=== PATIENT | female | born 1955 | race Caucasian/White ===

== ENCOUNTER → 2016-09-16 | Day surgery (SDC) | payer BC ==
[~2016-09-16] MED LIST: ASCORBIC ACID 250 MG TAB PO SCH; ASPIRIN 81 MG CHEWABLE TAB PO SCH; ATROPINE SULFATE 1 MG/10 ML SYR IVP PRN; CALCIUM CARBONATE 500 MG TAB PO SCH; CYANO/VITAMIN B12 1000 MCG TAB PO SCH; HYDROCODONE/APAP 5/325 TAB PO PRN; IOPAMIDOL (ISOVUE-370) 150 ML BTL IV ONE; LIDOCAINE 1% 30 ML SDV ONE; LORazepam 1 MG TAB PO PRN; MAGNESIUM OXIDE 400 MG TAB PO SCH; MIDAZOLAM 2 MG/2 ML VIAL ONE; NITROGLYCERIN 0.4 MG BTL SL PRN; NON-FORMULARY NEW DRUG (Esomeprazole Mag Trihydrate [Nexium] 40 MG) PO SCH; ONDANSETRON 4 MG/2 ML VIAL IVP PRN; OXYCODONE/APAP 5/325 TAB PO PRN; PANTOPRAZOLE SODIUM 40 MG TAB PO SCH; PROPAFENONE HCL SR 225 MG CAP PO SCH; PYRIDOXINE HCL 100 MG TAB PO SCH; fentaNYL 100 MCG/2 ML INJ ONE
[2016-09-16 13:14] VITALS: RESP 16; TEMP 99.3
--- NOTE | 2016-09-16 13:39 | CPEKG ---
Heart Rate: 65 RR Interval: 923 P-R Interval: 136 QRSD Interval: 84 QT Interval: 400 QTC Interval: 416 P Whitefield: 67 QRS Whitefield: 27 T Wave Whitefield: 17 EKG Severity - NORMAL ECG - EKG Impression: SINUS RHYTHM Electronically Signed By: Doug Carrasco 16-Sep-2016 15:31:56
--- NOTE | 2016-09-16 14:05 | EDPHY ---
H & P Time Seen by Provider: 09/16/16 13:32 HPI/ROS: Chief complaint. Dizziness HPI. 61-year-old female with increasing dizziness over the past 2 weeks. She was dizzy today and this somewhat continues. She had some shortness of breath. Occasional chest pressure. She had an abnormal stress test 2 days ago with the indication was arrhythmia. The abnormality is not known to the patient and there is no record in our system. She was dizzy and called the jigger operator's office today and was told to come to the ED ROS Constitutional. no fever/chills, no weakness Eyes. no problems with vision ENT. no sore throat, no nasal drainage Cardiovascular. Chest pressure Respiratory. Short of breath Abdominal. no abdominal pain, no nausea/vomiting, no diarrhea . no problems urinating MS. no calf pain/swelling, no neck/back pain, no joint pain Skin. no rash Lymph. no swollen glands Neuro. Dizziness Past Medical/Surgical History: Arrhythmia, back fusion Social History: , nonsmoker, no alcohol Smoking Status: Former smoker Physical Exam: General Appearance: Alert well-developed female mild distress vital signs stable Eyes: Pupils equal and round no pallor or injection. ENT, Mouth: Mucous membranes are moist. Respiratory: There are no retractions, lungs are clear to auscultation. Cardiovascular: Regular rate and rhythm. Gastrointestinal: Abdomen is soft and nontender, no masses, bowel sounds normal. Neurological: Awake and alert, sensory and motor exams grossly normal. Skin: Warm and dry, no rashes. Musculoskeletal: Neck is supple nontender. Extremities symmetrical, full range of motion. Psychiatric: Patient is oriented X 3, there is no agitation. Constitutional: Initial Vital Signs Temperature (C) 37.4 C 09/16/16 13:12 Heart Rate 70 09/16/16 13:12 Respiratory Rate 16 09/16/16 13:12 Blood Pressure 155/98 H 09/16/16 13:12 O2 Sat (%) 96 09/16/16 13:12 O2 Delivery Mode Room Air Allergies/Adverse Reactions: codeine Allergy (Mild, Verified 09/16/16 13:15) nauseated morphine Allergy (Mild, Verified 09/16/16 13:14) nauseated Home Medications: Medication Instructions Recorded Aspirin [Aspirin 81mg (*)] 81 mg PO DAILY 09/16/16 Esomeprazole Magnesium [Nexium] 5 mg PO 09/16/16 LORazepam [Ativan (*)] 1 mg PO 09/16/16 celeCOXIB [Celebrex (*)] 200 mg PO 09/16/16 Medical Decision Making - Diagnostics EKG Interpretation: EKG interpreted by me shows normal sinus rhythm normal interval and axis. QRS is normal there is no significant ST elevation or depression. No arrhythmia. The rate is 65 Procedures: IV normal saline, monitor ED Course/Re-evaluation: I called [facility] and have them send over results of her exercise stress test from 2 days ago. It shows that it was indeed abnormal and consistent with ischemia and cardiac catheterization is recommended Re-evaluation patient is stable. Patient and I discussed imaging lab EKG findings. We discussed treatment plan and recommendation for admission. I consulted and discussed case with Dr. Cox, cardiology, who will see the patient in the emergency department I called and discussed case with Dr. Abdalla, hospitalist, who agrees to the admission Differential Diagnosis: Patient has a normal workup today but has progressive dizziness and abnormal stress test consistent with ischemia. Plan is admission and heart catheterization - Data Points Laboratory Results: Laboratory Results 09/16/16 13:52 09/16/16 13:52 09/16/16 09/16/16 09/16/16 13:52 13:52 13:52 WBC 6.75 10^3/uL 10^3/uL (3.80-9.50) RBC 5.06 10^6/uL 10^6/uL (4.18-5.33) Hgb 14.9 g/dL g/dL (12.6-16.3) Hct 43.0 % % (38.0-47.0) MCV 85.0 fL fL (81.5-99.8) MCH 29.4 pg pg (27.9-34.1) MCHC 34.7 g/dL g/dL (32.4-36.7) RDW 13.2 % % (11.5-15.2) Plt Count 268 10^3/uL 10^3/uL (150-400) MPV 10.0 fL fL (8.7-11.7) Neut % (Auto) 70.1 % % (39.3-74.2) Lymph % (Auto) 21.5 % % (15.0-45.0) [place] % (Auto) 8.1 % % (4.5-13.0) Eos % (Auto) 0.0 % L % (0.6-7.6) Baso % (Auto) 0.0 % L % (0.3-1.7) Nucleat RBC Rel Count 0.0 % % (0.0-0.2) Absolute Neuts (auto) 4.73 10^3/uL 10^3/uL (1.70-6.50) Absolute Lymphs (auto) 1.45 10^3/uL 10^3/uL (1.00-3.00) Absolute Monos (auto) 0.55 10^3/uL 10^3/uL (0.30-0.80) Absolute Eos (auto) 0.00 10^3/uL L 10^3/uL (0.03-0.40) Absolute Basos (auto) 0.00 10^3/uL L 10^3/uL (0.02-0.10) Absolute Nucleated RBC 0.00 10^3/uL 10^3/uL (0-0.01) Immature Gran % 0.3 % % (0.0-1.1) Immature Gran # 0.02 10^3/uL 10^3/uL (0.00-0.10) D-Dimer 0.28 ug/mLFEU ug/mLFEU (0.00-0.50) Sodium 140 mEq/L mEq/L (134-144) Potassium 4.2 mEq/L mEq/L (3.5-5.2) Chloride 104 mEq/L mEq/L (97-110) Carbon Dioxide 26 mEq/l mEq/l (22-31) Anion Gap 10 mEq/L mEq/L (8-16) BUN 22 mg/dL mg/dL (7-23) Creatinine 0.6 mg/dL mg/dL (0.6-1.0) Estimated GFR > 60 Glucose 102 mg/dL H mg/dL (70-100) Calcium 9.8 mg/dL mg/dL (8.5-10.4) Troponin I < 0.012 ng/mL ng/mL (0-0.034) Departure - Departure Disposition: [facility] Clinical Impression: Dizziness, Abnormal ECG during exercise stress test Condition: Good Referrals: Grace Cazares MD [Primary Care Provider] - As per Instructions Aries Macdonald MD [Medical Doctor] - As per Instructions
[2016-09-16 14:07] LABS: % IMMATURE GRANULYOCYTES 0.3 % (0.0-1.1); ABSOLUTE IMMATURE GRANULOCYTES 0.02 10^3/uL (0.00-0.10); ADD DIFF? NO; ADD MORPH? NO; ADD SCAN? NO; ATYPICAL LYMPHOCYTE FLAG 0 (0-99); FRAGMENT RBC FLAG 0 (0-99); HEMOGLOBIN 14.9 g/dL (12.6-16.3); LEFT SHIFT FLG 0 (0-99); LIPEMIA HEMOLYSIS FLAG 90 (0-99); MEAN CELL HEMOGLOBIN 29.4 pg (27.9-34.1); MEAN CELL HEMOGLOBIN CONCENTR. 34.7 g/dL (32.4-36.7); PLATELET CLUMPS FLAG 20 (0-99); PLATELET COUNT 268 10^3/uL (150-400); RED BLOOD CELL COUNT 5.06 10^6/uL (4.18-5.33); RED CELL DISTRIBUTION WIDTH 13.2 % (11.5-15.2)
[2016-09-16 14:16] LABS: ANION GAP 10 mEq/L (8-16); CALCIUM 9.8 mg/dL (8.5-10.4); CARBON DIOXIDE 26 mEq/l (22-31); CHLORIDE 104 mEq/L (97-110); CREATININE 0.6 mg/dL (0.6-1.0); GLOMERULAR FILTRATION RATE > 60; GLUCOSE 102 mg/dL (70-100); POTASSIUM 4.2 mEq/L (3.5-5.2); SODIUM 140 mEq/L (134-144)
[2016-09-16 14:27] LABS: TROPONIN I < 0.012 ng/mL (0-0.034)
[2016-09-16 15:08] VITALS: BP 155/109; PULSE 77; O2SAT 98
--- NOTE | 2016-09-16 15:58 | PDDXCAT ---
Diagnostic Cath Note - . Date: 09/16/16 Mobile Heavy Equipment Operator: Kenny Indication: other (intermediate ETT) - Procedure Access: right groin Procedure: left heart catheterization, coronary angiography, left ventriculogram - Materials Left Heart Cath materials: standard multipack (JL4, JR4, pigtail) - Findings-Left Heart Catheterization LM: 1. normal LAD: 1. diffuse mild irregs LCX: 1. mild irregs RCA: 1. large dominant normal EDP: <20 mmhg LVEF: lvef=60% Wall motion: no rwma Complications: none Estimated blood loss: <50ml Closure method: Angioseal Assessment: 1. mild plaquing in right dominant system. 2.normal lvef without rwma. 3. normal lvedp Plan: 1. continue home meds ...apparently pt was intolerant of atrial of statin in the past with fatigue and diffuse muscle pain Patient Problems: Problems Problem Status Onset Abnormal ECG during exercise stress test Acute Dizziness Acute
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
--- NOTE | 2016-09-16 16:36 | PDEACUHP ---
History and Physical - Chief Complaint dizzy/abnormal stress test - History of Present Illness 61 yo F with PMH of HLD, GERD and dizzyness with associated sob and chest pressure presenting with recurrent dizzyness and concerns raised by her PCP that her recent stress test was abnormal. Patient describes dizzyness which she describes as loss of equilibrium, she has to at times hold on to things to steady herself. She has not had fainting or near fainting. She notes that she also has had issues with "arrythmias" that she believes are PVCs, she does not believe she has been given any other diagnosis for that. Today she notes she is also having issues with tremulousness that she states is not usual for her. She feels anxious as well. She has not had chest pain. She has not had fever or chills, no changes in health otherwise. History Information - Allergies/Home Medication List Allergies/Adverse Reactions: codeine Allergy (Mild, Verified 09/16/16 13:15) nauseated morphine Allergy (Mild, Verified 09/16/16 13:14) nauseated Home Medications: Ascorbic Acid [Vitamin C 250 mg (*)] 250 mg PO DAILY 09/16/16 [Last Taken ] Aspirin [Aspirin 81mg (*)] 81 mg PO DAILY 09/16/16 [Last Taken 09/16/16] Calcium Carbonate [Calcium] 500 mg PO DAILY 09/16/16 [Last Taken 09/16/16] Cyanocobalamin [Vitamin B12 (*)] 1,000 mcg PO DAILY 09/16/16 [Last Taken ] Esomeprazole Mag Trihydrate [Nexium] 40 mg PO DAILY 09/16/16 [Last Taken ] Herbals/Supplements -Info Only 1 ea PO DAILY 09/16/16 [Last Taken 09/16/16] LORazepam [Ativan (*)] 0.5 - 1 mg PO HS PRN 09/16/16 [Last Taken 09/15/16] Magnesium Oxide [Magnesium Oxide 400 mg (*)] 400 mg PO DAILY 09/16/16 [Last Taken 09/16/16] Propafenone HCl [Propafenone HCl ER] 225 mg PO DAILY 09/16/16 [Last Taken ] Pyridoxine HCl [Vitamin B-6 100 mg (*)] 100 mg PO DAILY 09/16/16 [Last Taken ] celeCOXIB [Celebrex (*)] 200 mg PO HS 09/16/16 [Last Taken 09/15/16] I have personally reviewed and updated: family history, medical history, social history, surgical history - Past Medical History GERD, hyperlipidemia Additional medical history: osteoarthritis. BCC. thyroid nodule. 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 Review of Systems ROS: 10pt was reviewed & negative except for what was stated in HPI & below Physical Exam Temp Pulse Resp BP Pulse Ox 37.4 C 77 16 155/109 H 98 09/16/16 13:12 09/16/16 15:07 09/16/16 15:07 09/16/16 15:07 09/16/16 15:07 O2 (L/minute) 2 Constitutional: no apparent distress Eyes: PERRL Ears, Nose, Mouth, Throat: moist mucous membranes, hearing normal Cardiovascular: regular rate and rhythym, no murmur, rub, or gallop, No edema Respiratory: no respiratory distress, no rales or rhonchi Gastrointestinal: normoactive bowel sounds, soft, non-tender abdomen Genitourinary: no bladder tenderness Skin: warm, normal color Musculoskeletal: full muscle strength, no muscle tenderness, No asymmetric calves Neurologic: AAOx3 Psychiatric: interacting appropriately, not anxious, not encephalopathic Lab Data & Imaging Review 09/16/16 13:52 09/16/16 13:52 WBC 6.75 10^3/uL (3.80-9.50) 09/16/16 13:52 RBC 5.06 10^6/uL (4.18-5.33) 09/16/16 13:52 Hgb 14.9 g/dL (12.6-16.3) 09/16/16 13:52 Hct 43.0 % (38.0-47.0) 09/16/16 13:52 MCV 85.0 fL (81.5-99.8) 09/16/16 13:52 MCH 29.4 pg (27.9-34.1) 09/16/16 13:52 MCHC 34.7 g/dL (32.4-36.7) 09/16/16 13:52 RDW 13.2 % (11.5-15.2) 09/16/16 13:52 Plt Count 268 10^3/uL (150-400) 09/16/16 13:52 MPV 10.0 fL (8.7-11.7) 09/16/16 13:52 Neut % (Auto) 70.1 % (39.3-74.2) 09/16/16 13:52 Lymph % (Auto) 21.5 % (15.0-45.0) 09/16/16 13:52 [place] % (Auto) 8.1 % (4.5-13.0) 09/16/16 13:52 Eos % (Auto) 0.0 % (0.6-7.6) L 09/16/16 13:52 Baso % (Auto) 0.0 % (0.3-1.7) L 09/16/16 13:52 Nucleat RBC Rel Count 0.0 % (0.0-0.2) 09/16/16 13:52 Absolute Neuts (auto) 4.73 10^3/uL (1.70-6.50) 09/16/16 13:52 Absolute Lymphs (auto) 1.45 10^3/uL (1.00-3.00) 09/16/16 13:52 Absolute Monos (auto) 0.55 10^3/uL (0.30-0.80) 09/16/16 13:52 Absolute Eos (auto) 0.00 10^3/uL (0.03-0.40) L 09/16/16 13:52 Absolute Basos (auto) 0.00 10^3/uL (0.02-0.10) L 09/16/16 13:52 Absolute Nucleated RBC 0.00 10^3/uL (0-0.01) 09/16/16 13:52 Immature Gran % 0.3 % (0.0-1.1) 09/16/16 13:52 Immature Gran # 0.02 10^3/uL (0.00-0.10) 09/16/16 13:52 D-Dimer 0.28 ug/mLFEU (0.00-0.50) 09/16/16 13:52 Sodium 140 mEq/L (134-144) 09/16/16 13:52 Potassium 4.2 mEq/L (3.5-5.2) 09/16/16 13:52 Chloride 104 mEq/L (97-110) 09/16/16 13:52 Carbon Dioxide 26 mEq/l (22-31) 09/16/16 13:52 Anion Gap 10 mEq/L (8-16) 09/16/16 13:52 BUN 22 mg/dL (7-23) 09/16/16 13:52 Creatinine 0.6 mg/dL (0.6-1.0) 09/16/16 13:52 Estimated GFR > 60 09/16/16 13:52 Glucose 102 mg/dL (70-100) H 09/16/16 13:52 Calcium 9.8 mg/dL (8.5-10.4) 09/16/16 13:52 Troponin I < 0.012 ng/mL (0-0.034) 09/16/16 13:52 Visualized and Interpreted Chest x-ray results: Yes Chest X-Ray results: other (cardiomegaly without failure) Visualized and Interpreted EKG results: Yes EKG Interpretation: Positive for: normal sinsus rhythm Assessment & Plan Assessment: Dizziness (Acute) Abnormal ECG during exercise stress test (Acute) 61 yo F with cardiac RF that include early onset CAD in family, HLD, prior tobacco use and age pw dizzyness and abnormal stress test as an op # abnormal stress test: plan for cardiac cath today to further evaluate, no real chest pain, though dizzyness thought to possibly be anginal equivalent. # dizzyness: sounds most c/w vertigo rather than near syncope though patient describes various sxs that are not all consistent. W/u for possible anginal equivalent as above. She has had a fairly recent brain MRI w/non specific white matter dz and f/u with neurology and they felt her MRI was not unexpected for her age etc. Could try meclizine or PT for patrick maneuver if continues. She is ambulating/working without issue despite the dizzyness # PVC's: symptomatic and controlled for the most part on rhythmol # HLD: intolerant of statins, depending on cath report may need to pursue tx further # dispo: observation status Patient new to my care. Old records reviewed and summarized as above. Care plan reviewed with ER doctor including plans for cardiology consult.
--- NOTE | 2016-09-16 22:59 | GDS ---
[f rep st] DISCHARGE SUMMARY DISCHARGE DIAGNOSES: 1. Dizziness. 2. Chest pain. 3. Abnormal stress test. 4. History of premature ventricular contractions. 5. Chronic medical issues including gastroesophageal reflux disease, hyperlipidemia, osteoarthritis . CONSULTATIONS: Cardiology. PROCEDURES PERFORMED: Cardiac catheterization. HOSPITAL COURSE BY PROBLEM: Chest pain and dizziness: She was referred to the hospital for further evaluation given recent abnormal stress test. She was taken to cardiac cath, this was normal. She was felt safe for her to follow up with her PCP for ongoing management. In terms of her dizziness, that does sound more consistent with vertigo. Chronic medical problems including gastroesophageal reflux disease, hyperlipidemia, osteoarthritis: No change in management. DISPOSITION: Patient discharged to home in good condition. FOLLOWUP: Will be with her PCP. MEDICATIONS: Please see EHR. /[id number]/MODL
== END | disposition home or self-care (01) ==
LOC: UNDOADMOB 14:46 → FCATH 15:30 → UNDODISOB 19:30
PROVIDERS: ATTEND Internal Medicine
PROC: 4A023N7 Measurement of Cardiac Sampling and Pressure, Left Heart, Percutaneous Approach (ICD-10-PCS; principal; 2016-09-16)
PROC: B2111ZZ Fluoroscopy of Multiple Coronary Arteries using Low Osmolar Contrast (ICD-10-PCS; principal; 2016-09-16)
PROC: B2151ZZ Fluoroscopy of Left Heart using Low Osmolar Contrast (ICD-10-PCS; principal; 2016-09-16)
DX: R42 Dizziness and giddiness (principal); R94.31 Abnormal electrocardiogram [ECG] [EKG]; I49.3 Ventricular premature depolarization; E78.5 Hyperlipidemia, unspecified; K21.9 Gastro-esophageal reflux disease without esophagitis; Z98.1 Arthrodesis status; Z86.79 Personal history of other diseases of the circulatory system; Z87.820 Personal history of traumatic brain injury
CPT/HCPCS: C1760; J1200; J1644; J2250; J3010; Q9967

== ENCOUNTER 2018-09-26 08:13 | Emergency (ER) | payer BC ==
[2018-09-26] MEDS ORDERED: ONDANSETRON 4 MG/2 ML VIAL IVP ONE (09:10)
[2018-09-26] MEDS ORDERED: MECLIZINE HCL 25 MG TAB PO ONE (09:10)
[2018-09-26] MEDS ORDERED: IOPAMIDOL (ISOVUE 370) 100 ML BTL IV ONE (09:47)
== END 2018-09-26 11:20 | disposition home or self-care (01) ==
DX: R42 Dizziness and giddiness (principal); R51 Headache